=== PATIENT | female | born 1985 | race Caucasian/White ===

== ENCOUNTER 2023-08-31 22:39 | Emergency (ER) | payer MEDICAID ==
[~2023-08-31] VITALS: Ht 154.9 cm; Wt 103.9 kg
[2023-08-31 22:58] VITALS: BP 149/91; PULSE 115; RESP 18; TEMP 98.5; O2SAT 97
[2023-08-31 23:42] LABS: FLU A ANTIGEN negative (NEGATIVE); FLU B ANTIGEN NEGATIVE (NEGATIVE)
[2023-08-31 23:53] VITALS: O2SAT 97
[2023-09-01] MEDS ORDERED: guaiFENesin 20 MG/ML UDC PO ONE (00:10)
[2023-09-01] MEDS ORDERED: KETOROLAC 30 MG/ML VIAL IM ONE (00:10)
[2023-09-01] MEDS ORDERED: guaiFENesin DM 200/20 MG-10 ML 10 ML UDC ONE (00:21)
[2023-09-01] MEDS ORDERED: ROBAC PO ×2 (01:14→02:17)
[2023-09-01] MEDS ORDERED: NAPR-54 PO (01:14)
[2023-09-01 01:16] VITALS: BP 101/59; PULSE 105; RESP 18; TEMP 98.5
[2023-09-01 01:19] VITALS: O2SAT 97
== END 2023-09-01 01:39 | disposition home or self-care (01) ==
LOC: MED 22:39
DX: J20.9 Acute bronchitis, unspecified (principal); Z20.822 Contact with and (suspected) exposure to COVID-19; Z79.899 Other long term (current) drug therapy
CPT/HCPCS: 71045; 87426; 87804; 96372; 99284; J1885; Q0092